=== PATIENT | male | born 1940 | race Caucasian/White ===

== ENCOUNTER → 2022-03-21 | Outpatient (CLI) | payer MEDICARE, OTHER | LOC: HEART 5 07:30 | DX: I10 Essential (primary) hypertension (principal); R53.1 Weakness ==

== ENCOUNTER → 2022-04-24 | Outpatient (CLI) | payer MEDICARE, OTHER | LOC: HEART 5 08:01 | DX: R00.1 Bradycardia, unspecified (principal); R55 Syncope and collapse; I07.1 Rheumatic tricuspid insufficiency; I27.20 Pulmonary hypertension, unspecified | CPT/HCPCS: 93306 ==

== ENCOUNTER → 2022-04-27 | Outpatient (CLI) | payer MEDICARE, OTHER | LOC: CATH 10:00 | DX: R55 Syncope and collapse (principal) ==